=== PATIENT | female | born 2000 | race Caucasian/White ===

== ENCOUNTER 2025-01-25 20:22 | Inpatient (IN) | payer MEDICAID ==
[~2025-01-25] VITALS: Ht 162.6 cm; Wt 45.4 kg
[2025-01-26 00:22] VITALS: BP 117/76; PULSE 74; RESP 16; TEMP 98.2; O2SAT 99
[2025-01-26] MEDS: LORazepam 2 MG TABLET PO PRN (00:24)
[2025-01-26] MEDS: ZOLPIDEM TARTRATE 10 MG TABLET PO PRN (00:24)
[2025-01-26 02:39] VITALS: BP 117/76; PULSE 74; RESP 16; O2SAT 99
[2025-01-26] MEDS ORDERED: PETROLATUM,WHITE 28 GM JELLY TP PRN (08:15)
[2025-01-26] MEDS ORDERED: CloNIDine HCL 0.1 MG TABLET PO PRN (08:15)
[2025-01-26] MEDS ORDERED: ALBUTEROL SULFATE HFA 90 MCG/PUFF 8 GM INHALER IH PRN (08:15)
[2025-01-26] MEDS ORDERED: BACITRACIN 28 GM OINTMENT TP PRN (08:15)
[2025-01-26] MEDS ORDERED: ACETAMINOPHEN 325 MG TABLET PO PRN (08:15)
[2025-01-26] MEDS ORDERED: MAG HYDROX/ALUMINUM HYD/SIMETH ES 30 ML SUSPENSION UDCUP PO PRN (08:15)
[2025-01-26] MEDS ORDERED: DOCUSATE SODIUM 100 MG CAPSULE PO PRN (08:15)
[2025-01-26] MEDS ORDERED: LOPERAMIDE HCL 2 MG CAPSULE PO PRN (08:15)
[2025-01-26] MEDS ORDERED: ONDANSETRON 4 MG TABLET PO PRN (08:15)
[2025-01-26] MEDS ORDERED: IBUPROFEN 600 MG TABLET PO PRN (08:15)
[2025-01-26] MEDS ORDERED: MAGNESIUM HYDROXIDE SUSPENSION 30 ML UDCUP PO PRN (08:15)
[2025-01-26] MEDS ORDERED: BENZOCAINE/MENTHOL [CEPACOL] LOZENGE PO PRN (08:15)
[2025-01-26] MEDS ORDERED: OMEPRAZOLE 20 MG CAPSULE PO PRN (08:15)
[2025-01-26 09:07] VITALS: BP 106/65; PULSE 68; RESP 16; TEMP 98.8; O2SAT 100
[2025-01-26] MEDS: FLUoxetine HCL 20 MG CAPSULE PO SCH (12:49)
[2025-01-26] MEDS: haloperidoL 5 MG TABLET PO PRN (18:31)
[2025-01-26 20:11] VITALS: BP 100/73; PULSE 68; RESP 17; TEMP 98.1; O2SAT 100
[2025-01-26] MEDS: NICOTINE POLACRILEX 2 MG LOZENGE PO PRN (22:11)
[2025-01-27 09:35] LABS: EOSINOPHILS % (AUTO) 3.6 % (1.0-6.0); HEMATOCRIT 41.7 % (36-46); HEMOGLOBIN 13.9 g/dL (12.0-16.0); LYMPHOCYTES % (AUTO) 36.3 % (22.0-44.0); MEAN CORPUSCULAR HGB CONC 33.3 G/dL (31.0-37.0); MEAN CORPUSCULAR VOLUME 90 fL (80-100); MONOCYTES # (AUTO) 0.4 K/uL (0.1-1.0); MONOCYTES % (AUTO) 6.4 % (2.0-9.0); NEUTROPHILS # (AUTO) 2.9 K/uL (1.8-7.7); NEUTROPHILS % (AUTO) 52.7 % (40.0-70.0); PLATELET COUNT (AUTO) 269 K/uL (150-450); RED BLOOD CELL COUNT(AUTO) 4.62 MIL/uL (4.00-5.20); RED CELL DISTRIBUTION WIDTH 13.3 % (11.5-14.5); WHITE BLOOD COUNT (AUTO) 5.6 K/uL (4.5-11.0)
[2025-01-27 09:47] LABS: HEMOGLOBIN A1C 5.2 % (3.8-5.6)
[2025-01-27 10:02] LABS: ALANINE AMINOTRANSFERASE 21 U/L (12-78); ALBUMIN 3.9 g/dL (3.4-5.0); ALKALINE PHOSPHATASE 71 U/L (46-116); ANION GAP 10 mmol/L (8-16); ASPARTATE AMINOTRANSFERASE 17 U/L (15-37); CALCIUM, TOTAL 9.2 mg/dL (8.8-10.5); CARBON DIOXIDE 28 mmol/L (22-29); CHLORIDE 101 mmol/L (98-107); CHOL/HDL RATIO 2.8 (3.9-5.7); CHOLESTEROL 178 mg/dL (131-200); CREATININE 0.78 mg/dL (0.60-1.30); GLOMERULAR FILTR. RATE CALC > 60 mL/min (>60); GLUCOSE,RANDOM 72 mg/dL (70-110); HDL CHOLESTEROL 64 mg/dL (40-60); LDL CHOL (CALC.) 104 mg/dL (0-130); POTASSIUM 3.9 mmol/L (3.5-5.1); SODIUM SERUM 139 mmol/L (136-145); T4 (THYROXINE) 7.5 mcg/dL (4.7-13.3); THYROID STIMULATING HORMONE 1.19 uIU/mL (0.36-3.74); TOTAL PROTEIN, SERUM 7.5 g/dL (6.4-8.2); TRIGLYCERIDES 51 mg/dL (15-150); UREA NITROGEN, BLOOD 13 mg/dL (7-18)
[2025-01-27 13:08] VITALS: BP 128/88; PULSE 83; RESP 16; TEMP 98.2; O2SAT 97
[2025-01-27 21:48] VITALS: BP 103/62; PULSE 62; RESP 17; TEMP 98; O2SAT 97
[2025-01-28 08:23] VITALS: BP 107/86; PULSE 76; RESP 18; TEMP 97.6; O2SAT 99
[2025-01-28 20:39] VITALS: RESP 17
[2025-01-29 08:36] VITALS: BP 118/69; PULSE 92; RESP 18; TEMP 97.6; O2SAT 98
[2025-01-29] MEDS: MULTIVITAMINS WITH MINERALS, THERAPEUTIC TABLET PO SCH (08:36)
[2025-01-29 17:53] VITALS: BP 102/88; RESP 17
[2025-01-29 21:21] VITALS: BP 118/77; PULSE 80; RESP 16; TEMP 98.2; O2SAT 100
[2025-01-30 02:41] VITALS: BP 112/101; PULSE 104; RESP 18
[2025-01-30 06:33] VITALS: BP 105/82; PULSE 84; RESP 18; O2SAT 99
[2025-01-30 08:00] VITALS: BP 100/75; PULSE 88; RESP 17; TEMP 97.5; O2SAT 100
[2025-01-30 21:23] VITALS: BP 100/83; PULSE 63; RESP 18; TEMP 98.2; O2SAT 99
[2025-01-31 08:53] VITALS: BP 119/82; PULSE 70; RESP 18; TEMP 97.4; O2SAT 99
[2025-01-31] MEDS ORDERED: FLUO-418 PO (12:21)
[2025-01-31] MEDS ORDERED: MULT-711 PO (12:22)
== END 2025-01-31 14:28 | disposition home or self-care (01) | DRG 751 ==
LOC: B2S 22:48
PROVIDERS: ADMIT Psychiatry & Neurology Child & Adolescent Psychiatry; ATTEND Psychiatry & Neurology Child & Adolescent Psychiatry
PROC: GZHZZZZ Group Psychotherapy (ICD-10-PCS; principal; 2025-01-26)
PROC: GZ58ZZZ Individual Psychotherapy, Cognitive-Behavioral (ICD-10-PCS; 2025-01-26)
PROC: GZ56ZZZ Individual Psychotherapy, Supportive (ICD-10-PCS; 2025-01-26)
DX: F33.2 Major depressive disorder, recurrent severe without psychotic features (principal); R45.851 Suicidal ideations; F41.9 Anxiety disorder, unspecified; Z20.822 Contact with and (suspected) exposure to COVID-19; G47.00 Insomnia, unspecified; F60.3 Borderline personality disorder; F15.90 Other stimulant use, unspecified, uncomplicated; F10.90 Alcohol use, unspecified, uncomplicated; Y90.9 Presence of alcohol in blood, level not specified; Z91.018 Allergy to other foods; Z63.9 Problem related to primary support group, unspecified
CPT/HCPCS: 80053; 80061; 83036; 84436; 84443; 85025